=== PATIENT | female | born 2000 | race Caucasian/White ===

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

== ENCOUNTER 2019-02-19 23:59 | Inpatient (IN) ==
[~2019-02-19 23:59] MED LIST: *HR* Nalbuphine 10 MG/ML AMPUL IVP PRN; Famotidine 20 MG/2 ML VIAL IVP PRN; Lidocaine 1% 20 ML MDV INFILT PRN; Metoclopramide 10 MG/2 ML VIAL IVP PRN; Naloxone 0.4 MG/ML INJ IVP PRN; Ondansetron 4 MG/2 ML VIAL IVP PRN; Ringers Solution, Lactated 1,000 ML IVC SCH; Ringers Solution, Lactated 1,000 ML ONE
[2019-02-20] LABS: Basophils # 0.1 K/mcL (0.0-0.2); Basophils % 0.4 %; Eosinophils # 0.1 K/mcL (0.0-0.6); Eosinophils % 0.4 %; Hematocrit 39.2 % (35.3-44.9); Hemoglobin 13.8 g/dL (11.5-15.4); Immature Granulocytes % 2.4 % (0-4); Lymphocytes # 1.9 K/mcL (0.6-4.6); Lymphocytes % 11.4 %; Mean Corpuscular HGB Conc 35.2 g/dL (31.6-35.5); Mean Corpuscular Hemoglobin 31.2 pg (28.0-33.3); Mean Corpuscular Volume 88.7 fL (83.0-100.0); Mean Platelet Volume 11.3 fL (9.4-12.4); Monocytes # 1.2 K/mcL (0.0-1.3); Monocytes % 7.1 %; Neutrophils # 13.4 K/mcL (1.6-8.9); Platelet Count 147 K/mcL (140-400); Red Blood Count 4.42 M/mcL (3.82-4.97); Red Cell Distribution Width 14.1 % (11.5-14.5); Segmented Neutrophils % 78.3 %; White Blood Count 17.1 K/mcL (4.3-11.1)
[2019-02-20] MEDS ORDERED: *HR* FentaNYL (PF) 100 MCG/2 ML VIAL ONE (00:05)
[2019-02-20] MEDS ORDERED: Ropivacaine/PF 0.2% 20 ML VIAL ONE (00:05)
[2019-02-20] MEDS ORDERED: Epidural Premix (fent/bupiv) 110 ML EP ONE (00:07)
[2019-02-20 00:15] LABS: Amphetamine Screen,Urine Negative ng/mL (Cutoff=1000); Barbiturate Screen,Urine Negative ng/mL (Cutoff=200); Benzodiazepines Screen,Urine Negative ng/mL (Cutoff=200); Cannabinoid Screen,Urine Negative ng/mL (Cutoff = 50); Cocaine Screen,Urine Negative ng/mL (Cutoff= 300); Opiate Screen,Urine Negative ng/mL (Cutoff=300); Phencyclidine Screen,Urine Negative ng/mL (Cutoff=25)
--- NOTE | 2019-02-20 01:34 | Anesthesia Evaluation PreOp ---
Date of Encounter: 02/20/19 Time of Encounter: 01:32 - Past History Planned Operation: yanira Cardiac History: Other (TOLAC) Pulmonary History: Denies Any Significant HX FOOD AND BEVERAGE SERVICE MANAGER History: Denies Any Significant HX Other Medical History: Denies Any Significant HX Anesthesia History: No Prior Anesthetic Complications, Past Anesthesia : Yes (, 37+2) Alcohol Use: none Drug use: none Medications and Allergies Vit/Iron Fumarate/FA [ Tablet] 1 each PO DAILY 02/23/18 [History] Docusate [Colace] 100 mg PO BID #60 capsule 04/11/18 [Rx] Ibuprofen [Motrin] 600 mg PO Q6HR PRN #60 tablet 04/11/18 [Rx] Simethicone [Gas-X] 80 mg PO TID PRN tab.chew 04/11/18 [Rx] Sulfamethoxazole/Trimeth DS [Bactrim DS] 2 each PO BID #28 tablet 04/19/18 [Rx] Allergy/AdvReac Type Severity Reaction Status Date / Time acetaminophen [From Vicodin] Allergy Hives Verified 02/20/19 00:05 hydrocodone [From Vicodin] Allergy Hives Verified 02/20/19 00:05 Penicillins Allergy Hives Verified 02/20/19 00:05 - Meds/Allergy Pre-op Review Medications Reviewed: Yes Allergies Reviewed: Yes Beta Blockers on Current Med List: No Anesthesia Results - Labs 02/19/19 23:46 Anesthesia Exam O2 Sat Height 1.6 m Weight 56.699 kg Height: 63 Weight: 125 - HEENT Pupil (Motor): Pupils equal Mallampati: II Teeth: Normal Oral Opening: Greater than 3 - FOOD AND BEVERAGE SERVICE MANAGER LOC: Oriented FOOD AND BEVERAGE SERVICE MANAGER Motor: Normal RUE, Normal LUE, Normal RLE, Normal LLE, Normal Face FOOD AND BEVERAGE SERVICE MANAGER Sensory: Normal: RUE, LUE, RLE, LLE, Face - Cardiac Rhythm: Regular Murmur: None JVD: No Carotid Bruit: No - Pulmonary Breath Sounds: bilateral Clear Respiratory Effort: Symmetrical Anesthesia Assess/Plan ASA Score: 2 Anesthetic Plan: Epidural Monitoring Plan: Standard Monitors
[2019-02-20] MEDS ORDERED: EPHEDrine 50 MG/ML VIAL IVP PRN (01:36)
--- NOTE | 2019-02-20 01:42 | Anesthesia Procedures ---
Date of Encounter: 02/20/19 Time of Encounter: 00:00 (procedure end time 0030) Procedures: Anesthesia - Epidural/Spinal Patient ID/Chart reviewed: Yes Patient examined: Yes OB Eval: Gestational age: 37 OB Eval: : 2 OB Eval: Hx Para: 1 OB Eval: Contractions: Non-stressed pattern Consent Obtained: Yes Supplemental Oxygen: None/Room Air Site Prep: Aseptic Technique Patient position: upright Local Anesthetic: Lidocaine 1% Amount of Local Anesthetic used: 3 Touhy Needle Gauge: 18 Touhy Needle Depth (cm): 4 Catheter Depth at Skin (cm): 10 Test Dose (1.5% Lido + Epi): Volume given (mls): 3 Test Dose Result: Negative Loading Dose: Fentanyl (mcg): 100 Loading Dose: Other: 5ml 0.2% ropivicaine Loading Dose Administered: Thru Touhy Needle Infusion Med: 0.125% Bupivacaine w/ 2 mcg/ml Fentanyl Infusion Rate (mls/hr): 14 Interspace Used: L3-L4 Loss of Resistance (CAN): Yes Blood: No CSF: No Paresthesia: No Procedure: strict asepsis, one attempt, good CAN, no parasthesias, no heme, no csf. gtt to 14cc/hr. FHR unchanged
--- NOTE | 2019-02-20 01:42 | OB/GYN History & Physical ---
Date of Encounter: 02/20/19 Time of Encounter: 01:34 Assessment and Plan (1) and not yet delivered in third trimester Current visit: Yes Status: Acute (2) 37 weeks gestation of Current visit: Yes Status: Acute (3) Active labor at term Current visit: Yes Status: Acute (4) Desires (vaginal after ) trial Current visit: Yes Status: Acute Consent signed for TOLAC plan is to anticipate vaginal delivery History of Present Illness HPI: Ms. Zuleta is a 18 year old female 2 para 1 at 37-2/7 weeks who presents to labor and delivery with complaint of contractions. Patient states at approximately 1600 she started having contractions stayed home until they were to the point she cannot tolerate them. Patient is a known previous low transverse section secondary to bradycardia with her last . Patient got to complete when she started pushing tones dropped into the 70s did not return in a did an emergency on the. At that time there was a nuchal cord 2 on the baby. She had talked to her primary SOAPING MACHINE BACK TENDER about doing a TOLAC. She did not have consent on file we did have her sign 1 giving permission to proceed on with this procedure. Patient was uncomfortable on admission was 6-7 cm progressed rapidly to 8 cm where epidural was placed. After her epidural patient was noted to be complete with bulging membranes. Started having decelerations resolved with fluids bolus. Patient is GBS negative, Rh-, rubella positive, Varicella positive Past Med Surg Social Fam HX - Past Medical History Source: patient, old records reviewed Medical history: no medical history Psychiatric history: depression - Past Surgical History Surgical History: no surgical history, (Low transverse section 1) - Social History Smoking Status: Never smoker Smokeless Tobacco Status: No Alcohol use: none Drug use: none Occupational status: unemployed Current living situation: Home - Independent Activity Level: Independent ambulation Recent Out of Country Travel Within the Last 8 Weeks: No Exposure or Possible Exposure to Illness During Travel: No - Family History Maternal Grandmother Hx Family Cardiac Disorders: Yes (HTN) Hx Family GI Disorders: Yes (maternal brother had "stomach blockage requiring surgery as baby") Hx Family Endocrine Disorder: Yes (DM 2) - Additional Family History Additional family history: Family history noncontributory Obstetrical History - Pregnancies : 2 Para: 1 Term: 1 : 0 Ab's: 0 Livin Medications and Allergies Vit/Iron Fumarate/FA [ Tablet] 1 each PO DAILY 02/23/18 [History] Docusate [Colace] 100 mg PO BID #60 capsule 04/11/18 [Rx] Ibuprofen [Motrin] 600 mg PO Q6HR PRN #60 tablet 04/11/18 [Rx] Simethicone [Gas-X] 80 mg PO TID PRN tab.chew 04/11/18 [Rx] Sulfamethoxazole/Trimeth DS [Bactrim DS] 2 each PO BID #28 tablet 04/19/18 [Rx] Allergy/AdvReac Type Severity Reaction Status Date / Time acetaminophen [From Vicodin] Allergy Hives Verified 02/20/19 00:05 hydrocodone [From Vicodin] Allergy Hives Verified 02/20/19 00:05 Penicillins Allergy Hives Verified 02/20/19 00:05 Review of System OB All systems PM: reviewed and no additional remarkable complaints except as stated Exam - Constitutional Constitutional: well developed, well nourished, no acute distress, thin - HEENT HEENT: EOMI, PERRL, Mucus Membranes Moist - Neck Neck exam: full ROM - Lungs Respiratory exam: CTAB - Cardiovascular Cardiovascular exam: RRR - Abdomen Abdomen: Present: bowel sounds normal, gravid ( heart 140s reactive, contractions every 2 minutes) - Cervix Dilation: 10 Effacement: 100 Station: +2 Results Result Diagrams: 02/19/19 23:46 Abnormal lab results WBC 17.1 K/mcL (4.3-11.1) H 02/19/19 23:46 Neutrophils # 13.4 K/mcL (1.6-8.9) H 02/19/19 23:46 All other labs normal. - VTE Reasons for not Prescribing Prophylaxis: Treatment not Indicated - Low risk for VTE
[2019-02-20] MEDS ORDERED: Epidural Premix (fent/bupiv) 110 ML EP SCH (01:45)
[2019-02-20] MEDS ORDERED: Oxytocin 20 units/ LR 1000 mL 20 UNIT/1,000 ML BAG IVC ONE (02:13)
--- NOTE | 2019-02-20 02:43 | OB/GYN Procedure Note ---
Delivery - Delivery Date: 02/20/19 Provider: Kt Juan Intrapartum events: abruption, precipitous labor- <3hr Delivery induction: none Delivery augmentation: rupture of membranes Delivery monitor: external FHT, external uterine Anesthesia: epidural Quantitated Blood Loss: 100 - Infant (s) Infant A Infant Delivery Date: 02/20/19 Infant Delivery Time: 02:12 Presentation: vertex Position: PEDRO Route of delivery: Gender: Female Viability: Viable Pounds: 6 Ounces: 12 Weight Gram: 3.075 kg at 1 minute: 9 at 5 mins: 9 Shoulder Dystocia: not encountered Specimens collected: cord blood Placenta: spontaneous Cord: nuchal cord, 3 umbilical vessels, nuchal reduced - Repair Episiotomy: none Laceration Description: Periurethral (bilateral) - Complications Delivery complications: none Delivery comments: Patient is a 18-year-old 2 para 1 at 37-2/7 weeks who presented to labor and delivery in active labor. She states she started shraddha at approxima tely 1600 yesterday progressively got worse the patient upon arrival to labor and delivery was 6-7 cm. Patient has a history of a previous section for bradycardia was wanting to TOLAC. This had been discussed with her in the office and we did have a sinus consent. Patient progressed rapidly she received an epidural when she was 8 cm and was complete after the epidural she was artificially ruptured at this time large amounts of clear fluid. Patient was having some deep variable decelerations and contractions were on top of each other with tachysystole. We had the patient stop pushing patient pushed effectively delivering a viable female infant in left occiput anterior presentation at 0212. There was a nuchal cord 1 loose and reduced there was no meconium the infant was bulb suctioned the abdomen. Apgars were 9 at 1 minute, 9 at family, infant weight was 6 lbs. 12 oz. Placenta was delivered spontaneously with a three-vessel cord. Placental disc was evaluated and she was noted to have a clot along the periphery suggestive of a small abruption. Butadiene Convertor Operator was Dr. Juan, library media assistant Carlos Enrique Nicole OMS 3, anesthesia epidural, estimated blood loss 100 mL. The uterus was explored at this time the lower uterine segment scar was intact. She had bilateral periurethral lacerations repaired with 4-0 Vicryl in usual fashion. Cervix and vagina was visualized intact. She will be observed 2 hours before being taken floor. - Disposition Mom disposition: stable in LDR Sat[place]ia disposition: stable in LDR
[2019-02-20] MEDS ORDERED: Rho Immune Globulin 1,500 UNIT SYRINGE IM PRN (03:07)
[2019-02-20] MEDS ORDERED: Oxytocin 20 units/ LR 1000 mL 20 UNIT/1,000 ML BAG IVC SCH (03:07)
[2019-02-20] MEDS ORDERED: Acetaminophen 325 MG TABLET PO PRN (03:07)
[2019-02-20] MEDS: Ibuprofen 600 MG TABLET PO PRN ×2 (03:27→10:36)
[2019-02-20 08:01] LABS: Basophils # 0.1 K/mcL (0.0-0.2); Basophils % 0.3 %; Eosinophils % 0.1 %; Hemoglobin 12.8 g/dL (11.5-15.4); Immature Granulocytes % 1.3 % (0-4); Lymphocytes # 1.3 K/mcL (0.6-4.6); Lymphocytes % 6.8 %; Mean Corpuscular HGB Conc 34.6 g/dL (31.6-35.5); Mean Corpuscular Hemoglobin 30.9 pg (28.0-33.3); Mean Corpuscular Volume 89.4 fL (83.0-100.0); Mean Platelet Volume 11.2 fL (9.4-12.4); Monocytes # 1.2 K/mcL (0.0-1.3); Monocytes % 6.4 %; Neutrophils # 16.6 K/mcL (1.6-8.9); Platelet Count 134 K/mcL (140-400); Red Blood Count 4.14 M/mcL (3.82-4.97); Segmented Neutrophils % 85.1 %; White Blood Count 19.5 K/mcL (4.3-11.1)
[2019-02-20] MEDS: Prenatal Vit/FA 1 EACH TABLET PO SCH (10:36)
[2019-02-21] MEDS: Ibuprofen 600 MG TABLET PO PRN ×2 (01:17→10:24)
[2019-02-21] MEDS ORDERED: Etonogestrel 68 MG IMPLANT IL PRN (09:07)
[2019-02-21] MEDS ORDERED: Lidocaine/EPI 1:100k 1% 30 ML VIAL INFILT PRN (09:07)
[2019-02-21] MEDS: Prenatal Vit/FA 1 EACH TABLET PO SCH (10:24)
[2019-02-21 11:40] VITALS: BP 106/71
--- NOTE | 2019-02-21 12:47 | OB/GYN Procedure Note ---
OB-DAIRY CATTLE FARM WORKER: Procedure - Diagnosis Date of procedure: 02/21/19 Pre-op diagnosis: Desires contraception - Procedure Procedure: Nexplanon insertion Surgeon: Rowan Rodgers Was there an publisher assistant present: No Anesthesia provider: Rowan Rodgers Anesthesia Type: Local Disposition: no change Narrative: Patient desires Nexplanon for control and would like to have it placed prior to discharge. Examination: Informed consent was obtained and time out performed. Patient was placed in supine position with left arm in the appropriate position. Betadine was used to prep the arm in sterile fashion. 1% Lidocaine was used for anesthesia. The Nexplanon was inserted in the subcutaneous tissue to the appropriate length then the Nexplanon was released. Both myself and the patient can palpate the bonifacio without difficulty. Bandage and pressure dressing was applied. Patient tolerate the procedure well. Patient was instructed on wound care and is to follow up as needed. Patient educated on back up control for 7 days. Procedure: Correct patient, procedure, and site were verified and time out performed per policy. Therapeutic Injections: 3 mL of Lidocaine given at site of insertion by Barak Rodgers CNM
--- NOTE | 2019-02-21 12:51 | Discharge Summary ---
Date of Encounter: 02/21/19 Time of Encounter: 11:45 - Discharge Diagnosis (1) , delivered, current hospitalization Priority: Primary Status: Acute - Discharge Medications Prescriptions: No Action Vit/Iron Fumarate/FA [ Tablet] 1 each PO DAILY Ibuprofen [Motrin] 600 mg PO Q6HR PRN #60 tablet PRN Reason: Cramping Docusate [Colace] 100 mg PO BID #60 capsule Simethicone [Gas-X] 80 mg PO TID PRN tab.chew PRN Reason: Dyspepsia Sulfamethoxazole/Trimeth DS [Bactrim DS] 2 each PO BID #28 tablet Home Medications: Vit/Iron Fumarate/FA [ Tablet] 1 each PO DAILY 02/23/18 [History] Docusate [Colace] 100 mg PO BID #60 capsule 04/11/18 [Rx] Ibuprofen [Motrin] 600 mg PO Q6HR PRN #60 tablet 04/11/18 [Rx] Simethicone [Gas-X] 80 mg PO TID PRN tab.chew 04/11/18 [Rx] Sulfamethoxazole/Trimeth DS [Bactrim DS] 2 each PO BID #28 tablet 04/19/18 [Rx] Allergies/Adverse Reactions: Allergy/AdvReac Type Severity Reaction Status Date / Time acetaminophen [From Vicodin] Allergy Hives Verified 02/20/19 00:05 hydrocodone [From Vicodin] Allergy Hives Verified 02/20/19 00:05 Penicillins Allergy Hives Verified 02/20/19 00:05 Data Procedures and tests throughout hospitalization: Laboratory Tests 02/19/19 02/19/19 02/20/19 23:46 23:46 03:00 WBC 17.1 H RBC 4.42 Hgb 13.8 Hct 39.2 MCV 88.7 MCH 31.2 MCHC 35.2 RDW 14.1 Plt Count 147 MPV 11.3 Immature Gran % 2.4 Seg Neutrophils % 78.3 Lymphocytes % 11.4 Monocytes % 7.1 Eosinophils % 0.4 Basophils % 0.4 Neutrophils # 13.4 H Lymphocytes # 1.9 Monocytes # 1.2 Eosinophils # 0.1 Basophils # 0.1 Urine Opiates Screen Negative Ur Buprenorphine Scrn Negative Ur Barbiturates Screen Negative Ur Phencyclidine Scrn Negative Ur Amphetamines Screen Negative U Benzodiazepines Scrn Negative Urine Cocaine Screen Negative U Marijuana (THC) Screen Negative Ur Drug Screen Interp See Below Screen NEGATIVE Baby's Blood Type O RH POSITIVE Mother's Blood Type A RH NEGATIVE Rhogam Indicated YES Rhogam Req for Mother 1 02/20/19 07:44 WBC 19.5 H RBC 4.14 Hgb 12.8 Hct 37.0 MCV 89.4 MCH 30.9 MCHC 34.6 RDW 14.0 Plt Count 134 L MPV 11.2 Immature Gran % 1.3 Seg Neutrophils % 85.1 Lymphocytes % 6.8 Monocytes % 6.4 Eosinophils % 0.1 Basophils % 0.3 Neutrophils # 16.6 H Lymphocytes # 1.3 Monocytes # 1.2 Eosinophils # 0.0 Basophils # 0.1 Urine Opiates Screen Ur Buprenorphine Scrn Ur Barbiturates Screen Ur Phencyclidine Scrn Ur Amphetamines Screen U Benzodiazepines Scrn Urine Cocaine Screen U Marijuana (THC) Screen Ur Drug Screen Interp Screen Baby's Blood Type Mother's Blood Type Rhogam Indicated Rhogam Req for Mother Date of admission: 02/19/19 23:59 Primary care physician: Tee Cho MD Consults: 02/20/19 03:07 Consult to Tactical Air Defense Controller [CONS] Routine Comment: Vaginal delivery, consult needed Discharging clinician: Rowan Rodgers Anticipated date of discharge: 02/21/19 - Patient Status Disposition: Home, Self-Care Condition: Good Functional capacity at discharge: independent ambulation Overall status at discharge: patient is progressing back to baseline - Discharge Instructions Follow Up With: Tee Cho MD [Primary Care Provider] - Kt Juan DO [Partnered Physician] - - Diet and Activity Activity: resume usual activities as tolerated Diet: regular diet Hospital Course Reason for admission: induction of labor Delivery: Episiotomy: none Laceration: other (periurethral) Other procedures: none complications: none Discharge diagnosis: IUP at term delivered baby: female Hospital course: Delivery Date: 02/20/19 Provider: Kt Juan Intrapartum events: abruption, precipitous labor- <3hr Delivery induction: none Delivery augmentation: rupture of membranes Delivery monitor: external FHT, external uterine Anesthesia: epidural Quantitated Blood Loss: 100 - (s) Infant A Delivery Date: 02/20/19 Infant Delivery Time: 02:12 Presentation: vertex Position: PEDRO Route of delivery: Gender: Female Viability: Viable Pounds: 6 Ounces: 12 Weight Gram: 3.075 kg at 1 minute: 9 at 5 mins: 9 Shoulder Dystocia: not encountered Specimens collected: cord blood Placenta: spontaneous Cord: nuchal cord, 3 umbilical vessels, nuchal reduced - Repair Episiotomy: none Laceration Description: Periurethral (bilateral) - Complications Delivery complications: none Delivery comments: Patient is a 18-year-old 2 para 1 at 37-2/7 weeks who presented to labor and delivery in active labor. She states she started shraddha at approximately 1600 yesterday progressively got worse the patient upon arrival to labor and delivery was 6-7 cm. Patient has a history of a previous section for bradycardia was wanting to TOLAC. This had been discussed with her in the office and we did have a sinus consent. Patient progressed rapidly she received an epidural when she was 8 cm and was complete after the epidural she was artificially ruptured at this time large amounts of clear fluid. Patient was having some deep variable decelerations and contractions were on top of each other with tachysystole. We had the patient stop pushing patient pushed effectively delivering a viable female in left occiput anterior presentation at 0212. There was a nuchal cord 1 loose and reduced there was no meconium the was bulb suctioned the abdomen. Apgars were 9 at 1 minute, 9 at family, infant weight was 6 lbs. 12 oz. Placenta was delivered spontaneously with a three-vessel cord. Placental disc was evaluated and she was noted to have a clot along the periphery suggestive of a small ab ruption. Ammonia Refrigeration Worker was Dr. Juan, secretary administrative assistant Carlos Enrique Nicole OMS 3, anesthesia epidural, estimated blood loss 100 mL. The uterus was explored at this time the lower uterine segment scar was intact. She had bilateral periurethral lacerations repaired with 4-0 Vicryl in usual fashion. Cervix and vagina was visualized intact. She will be observed 2 hours before being taken floor. - Disposition Mom disposition: stable in LDR disposition: stable in LDR Time Attestation: Total time spent providing and/or coordinating discharge services: Time Spent: Less than 30 minutes Exam - Constitutional Vitals: Temp Pulse Resp BP Pulse Ox 97.9 F 55 16 106/71 99 02/21/19 11:39 02/21/19 11:39 02/21/19 11:39 02/21/19 11:39 02/20/19 15:35 General appearance IM: A&O X 3, pleasant, no acute distress, answers questions appropriately - Respiratory Respiratory exam: Present: CTAB. Absent: respiratory distress - Cardiovascular Cardiovascular exam IM: Present: RRR, +S1, +S2. Absent: irregular rhythm - GI/Abdominal GI/Abdominal exam IM: normal bowel sounds, soft - Rectal Rectal exam: deferred - External exam: normal external exam Uterine Tone: Firm Uterus Position: 1 Finger Below Umbilicus, Midline - Extremities Exam Extremities exam IM: Present: full ROM, normal capillary refill, normal inspection. Absent: calf tenderness - Neurological Exam Neurological exam: alert, normal gait, oriented X3
== END 2019-02-21 12:48 | disposition home or self-care (01) ==
LOC: 1NENULAB → 1NENUOBS 02-20 05:01
PROVIDERS: ADMIT Advanced Practice Midwife; ATTEND Advanced Practice Midwife

== ENCOUNTER 2021-12-07 20:17 | Observation (INO) ==
[2021-12-07 19:56] LABS: Bilirubin,Urine Negative (Negative); Blood,Urine Negative (Negative); Clarity,Urine Clear (Clear); Color,Urine Light-Yellow (Yellow); Glucose,Urine (UA) Normal (Normal); Ketones,Urine Negative (Negative); Leukocyte Esterase,Urine Negative (Negative); Nitrite,Urine Negative (Negative); PH,Urine 6.5 pH Units (5.0-8.0); Protein,Urine Negative (Neg-Trace); Specific Gravity,Urine 1.008 (1.010-1.025)
[2021-12-07 20:08] LABS: Amorphous Sediment,Urine Few per hpf (None-Few); Bacteria,Urine Few per hpf (None-Few); Mucus,Urine Few per lpf (None-Few); RBC,Urine 0-3 per hpf (0-3); Squamous Epithelial Cell,Urine Few per hpf (None-Few)
[~2021-12-07 20:17] MED LIST changes: -*HR* Nalbuphine 10 MG/ML AMPUL IVP PRN; +Betamethasone Acet/SodPhos 30 MG/5 ML VIAL IM SCH; -Famotidine 20 MG/2 ML VIAL IVP PRN; +Indomethacin 25 MG CAPSULE PO ONE; +Indomethacin 25 MG CAPSULE PO SCH; -Lidocaine 1% 20 ML MDV INFILT PRN; -Metoclopramide 10 MG/2 ML VIAL IVP PRN; -Naloxone 0.4 MG/ML INJ IVP PRN; -Ondansetron 4 MG/2 ML VIAL IVP PRN; +Ringers Solution, Lactated 1,000 ML IVC ONE; -Ringers Solution, Lactated 1,000 ML IVC SCH; -Ringers Solution, Lactated 1,000 ML ONE; +Terbutaline 1 MG/ML VIAL SQ ONE
[2021-12-07 23:09] LABS: Chlamydia Trachomatis DNA Ur NOT DETECTED (Not Detect)
[2021-12-07] MEDS: Indomethacin 25 MG CAPSULE PO SCH (23:54)
[2021-12-08] MEDS: Indomethacin 25 MG CAPSULE PO SCH (03:54)
== END 2021-12-08 07:50 | disposition home or self-care (01) ==
LOC: 1NENULAB
PROVIDERS: ADMIT Student in an Organized Health Care Education/Training Program; ATTEND Student in an Organized Health Care Education/Training Program

== ENCOUNTER → 2022-01-09 19:20 | Observation (INO) | END | disposition home or self-care (01) | LOC: 1NENULAB | PROVIDERS: ADMIT Obstetrics & Gynecology; ATTEND Obstetrics & Gynecology ==

== ENCOUNTER → 2022-01-17 02:01 | Observation (INO) | END | disposition home or self-care (01) | LOC: 1NENULAB | PROVIDERS: ADMIT Student in an Organized Health Care Education/Training Program; ATTEND Student in an Organized Health Care Education/Training Program ==

== ENCOUNTER 2022-01-25 10:01 | Inpatient (IN) ==
[2022-01-25] MEDS ORDERED: Naloxone 0.4 MG/ML INJ IVP PRN (10:10)
[2022-01-25] MEDS ORDERED: Ringers Solution, Lactated 1,000 ML ONE (10:10)
[2022-01-25] MEDS ORDERED: Famotidine 20 MG/2 ML VIAL IVP PRN (10:10)
[2022-01-25] MEDS ORDERED: Metoclopramide 10 MG/2 ML VIAL IVP PRN (10:10)
[2022-01-25] MEDS ORDERED: EPHEDrine 50 MG/ML VIAL IVP PRN (10:11)
[2022-01-25] MEDS ORDERED: *HR* FentaNYL (PF) 100 MCG/2 ML VIAL ONE (10:15)
[2022-01-25] MEDS ORDERED: Oxytocin 30 UNIT/503 ML BAG IVC SCH (10:15)
[2022-01-25] MEDS ORDERED: Ropivacaine/PF 0.2% 20 ML VIAL ONE (10:15)
[2022-01-25] MEDS ORDERED: Epidural Premix (fent/bupiv) 110 ML EP SCH (10:15)
[2022-01-25] MEDS: Ringers Solution, Lactated 1,000 ML IVC SCH ×2 (10:20→12:48)
[2022-01-25 10:40] LABS: Basophils # 0.1 K/mcL (0.0-0.2); Basophils % 0.4 %; Eosinophils # 0.3 K/mcL (0.0-0.6); Eosinophils % 1.8 %; Hematocrit 35.7 % (35.3-44.9); Hemoglobin 11.8 g/dL (11.5-15.4); Immature Granulocytes % 1.3 % (0-4); Lymphocytes # 1.9 K/mcL (0.6-4.6); Lymphocytes % 12.8 %; Mean Corpuscular HGB Conc 33.1 g/dL (31.6-35.5); Mean Corpuscular Hemoglobin 26.8 pg (28.0-33.3); Monocytes # 0.9 K/mcL (0.0-1.3); Monocytes % 5.8 %; Neutrophils # 11.8 K/mcL (1.6-8.9); Platelet Count 175 K/mcL (140-400); Red Blood Count 4.41 M/mcL (3.82-4.97); Red Cell Distribution Width 14.6 % (11.5-14.5); Segmented Neutrophils % 77.9 %; White Blood Count 15.1 K/mcL (4.3-11.1)
[2022-01-25] MEDS ORDERED: Ondansetron 4 MG/2 ML VIAL ONE (12:40)
[2022-01-25 15:21] LABS: Amphetamine Screen,Urine Negative ng/mL (Cutoff=1000); Barbiturate Screen,Urine Negative ng/mL (Cutoff=200); Benzodiazepines Screen,Urine Negative ng/mL (Cutoff=200); Cannabinoid Screen,Urine Negative ng/mL (Cutoff = 50); Cocaine Screen,Urine Negative ng/mL (Cutoff= 300); Opiate Screen,Urine Negative ng/mL (Cutoff=300); Phencyclidine Screen,Urine Negative ng/mL (Cutoff=25)
[2022-01-25] MEDS ORDERED: Benzocaine/Menthol 56 GM AEROSOL SPRAY TP PRN (15:56)
[2022-01-25] MEDS ORDERED: Ondansetron ODT 4 MG TAB.RAPDIS SL PRN (15:56)
[2022-01-25] MEDS ORDERED: Measles/Mumps/Rubella Vacc 0.5 ML VIAL SQ PRN (15:56)
[2022-01-25] MEDS ORDERED: Rho Immune Globulin 1,500 UNIT SYRINGE IM PRN (15:56)
[2022-01-25] MEDS ORDERED: OXYTOCIN/RINGERS LACTATE 10 UNIT/166.6 ML BAG IVC ONE (15:56)
[2022-01-25] MEDS ORDERED: Famotidine 20 MG TABLET PO PRN (15:56)
[2022-01-25] MEDS ORDERED: Lanolin 7 G OINT...G. TP PRN (15:56)
[2022-01-25] MEDS: Acetaminophen 325 MG TABLET PO SCH (16:47)
[2022-01-25] MEDS ORDERED: Ondansetron 4 MG/2 ML VIAL IVP SCH (18:00)
[2022-01-25] MEDS: Ibuprofen 600 MG TABLET PO SCH (21:40)
[2022-01-26 04:33] LABS: Basophils # 0.1 K/mcL (0.0-0.2); Basophils % 0.3 %; Eosinophils # 0.2 K/mcL (0.0-0.6); Eosinophils % 1.1 %; Hematocrit 30.4 % (35.3-44.9); Immature Granulocytes % 0.8 % (0-4); Lymphocytes % 11.7 %; Mean Corpuscular HGB Conc 32.2 g/dL (31.6-35.5); Mean Corpuscular Hemoglobin 26.3 pg (28.0-33.3); Mean Corpuscular Volume 81.5 fL (83.0-100.0); Mean Platelet Volume 11.1 fL (9.4-12.4); Monocytes # 1.1 K/mcL (0.0-1.3); Monocytes % 6.2 %; Neutrophils # 13.4 K/mcL (1.6-8.9); Platelet Count 151 K/mcL (140-400); Red Blood Count 3.73 M/mcL (3.82-4.97); Red Cell Distribution Width 14.6 % (11.5-14.5); Segmented Neutrophils % 79.9 %; White Blood Count 16.8 K/mcL (4.3-11.1)
[2022-01-26 04:35] LABS: Hemoglobin 9.8 g/dL (11.5-15.4)
[2022-01-26 08:00] VITALS: BP 89/43; PULSE 49; TEMP 98.3; O2SAT 99
[2022-01-26] MEDS: Acetaminophen 325 MG TABLET PO SCH ×3 (08:23→09:02)
[2022-01-26] MEDS: Ibuprofen 600 MG TABLET PO SCH ×2 (08:24→13:12)
[2022-01-26] MEDS ORDERED: Prenatal Vit/FA 1 EACH TABLET PO SCH ×2 (09:00)
== END 2022-01-26 14:55 | disposition home or self-care (01) | DRG 560 ==
LOC: 1NENULAB 10:01 → 1NENUOBS 16:19
PROVIDERS: ADMIT Student in an Organized Health Care Education/Training Program; ATTEND Student in an Organized Health Care Education/Training Program